=== PATIENT | female | born 1940 | race Caucasian/White ===

== ENCOUNTER 2017-01-21 14:56 | Observation (INO) | payer MEDICARE, OTHER ==
[2017-01-21] MEDS ORDERED: Aspirin Low Dose CHEW TAB* 81 MG PO ONE (15:49)
[2017-01-21 16:04] LABS: Hematocrit 40 % (35-47); Hemoglobin 13.9 g/dl (12.0-16.0); Mean Corpuscular HGB Conc 35 g/dl (31-36); Mean Corpuscular Hemoglobin 31 pg (27-31); Mean Corpuscular Volume 90 fL (80-97); Mean Platelet Volume 8 um3 (7.4-10.4); Red Blood Count 4.45 10^6/ul (4.0-5.4); Red Cell Distribution Width 13 % (10.5-15); White Blood Count 6.7 10^3/ul (3.5-10.8)
[2017-01-21] MEDS ORDERED: clonazePAM TAB(*) 0.5 MG PO ONE (16:12)
[2017-01-21 16:23] LABS: Albumin 4.3 g/dL (3.2-5.2); Calcium 9.6 mg/dL (8.6-10.3); EGFR African American 55.6 (>60); EGFR Non-African American 43.3 (>60); Globulin 2.6 g/dL (2-4); Potassium 3.6 mmol/L (3.5-5.0); Total Bilirubin 0.5 mg/dL (0.2-1.0); Total Protein 6.9 g/dL (6.4-8.9)
[2017-01-21 16:25] LABS: Troponin I 0.01 ng/mL (<0.04)
--- NOTE | 2017-01-21 16:32 | RAD ---
Indication: Chest pain. Single frontal view of the chest performed at 1615 hours was reviewed. Comparison is made with previous exam dated April 15, 2012. No mediastinal shift is noted. Heart is of normal size and configuration. Lung nichols appear clear. IMPRESSION: NO ACTIVE CARDIOPULMONARY DISEASE IS NOTED.
[2017-01-21] MEDS ORDERED: Acetaminophen TAB* 325 MG PO PRN (17:50)
[2017-01-21] MEDS ORDERED: Ondansetron INJ* 2 MG/ML VIAL IV PRN (17:50)
[2017-01-21] MEDS: Heparin VIAL(*) 5000 UNITS/ML VIAL (FIVE THOUSAND) SUBCUT SCH (21:11)
--- NOTE | 2017-01-22 00:50 | HP ---
HISTORY AND PHYSICAL: DATE OF ADMISSION: 01/21/17 PRIMARY CARE PROVIDER: Celia Escudero NP ATTENDING PHYSICIAN WHILE IN THE HOSPITAL: Chidi Hewitt MD*(report dictated by Lan Dupree NP) CHIEF COMPLAINT: 1. Chest pain. 2. Anxiety. 3. Suicidal ideation. HISTORY OF PRESENT ILLNESS: Ms. Weaver is a 77-year-old female patient who unfortunately 4 months ago lost her ; in addition to this, recently also lost her brother. She has been dealing with quite a fair amount of stress. She carries a history of anxiety and depression. She has not slept in 2 days and she had been having an upset stomach. She also has a history of GERD, arthritis, panic attacks, macular degeneration, and glaucoma, although currently not on any treatment. She comes in today because she today was going through her 's things in the garage and she came across a few articles that reminded her of him and she started developing chest pressure, tightness, squeezing in the left arm and chest wall down and also had an associated shortness of breath. She denied any diaphoresis and denied having any nausea. She states that she has not been feeling ill recently with the exception that she does have a little bit of a runny nose at times, but she states she has been feeling very anxious and she feels like she just does not want to continue living, and she did state to the nurses and myself that she did feel suicidal, but no plan was in place. She says that she just does not feel like continuing to live because of losing her significant other. The family was concerned for several reasons obviously, particularly the suicidal ideation and the chest discomfort, so they brought her in to the hospital to be evaluated today. She denies any chest pressure currently. She states she feels a little bit better after having been treated here in the ER, but because of the chest discomfort, the hospitalist service was asked to evaluate for admission. PAST MEDICAL HISTORY: Significant for: 1. GERD. 2. Arthritis. 3. Depression. 4. Anxiety. 5. Panic attacks. 6. Macular degeneration. 7. Glaucoma. PAST SURGICAL HISTORY: 1. She has had back surgery x3. 2. Cataract extraction. 3. Hysterectomy. 4. Cleft palate repair. HOME MEDICATIONS: According to the list she gave me include: 1. Lexapro 10 mg p.o. daily. 2. Zantac 150 mg p.o. daily. ALLERGIES TO MEDICATIONS: Include MAOI ANTIDEPRESSANTS. FAMILY HISTORY: Both her parents did have a history of heart disease and MIs. SOCIAL HISTORY: She does not smoke. Does not drink. She lives alone. Surrogate decision maker is her son. REVIEW OF SYSTEMS: There is no documented fever. She denied having any significant weight change. There was no double vision. She denies having any ear discharge. There is no rhinorrhea. There is no sore throat. No thyroid enlargement. She admitted to having chest pressure per my HPI. She denies having any abdominal pain. There was no nausea. No vomiting. No dysuria. No frequency. No seizure. No loss of consciousness. No pruritus. No skin ulcerations. Review of 14 systems completed, all others negative. PHYSICAL EXAMINATION GENERAL: At this time, Ms. Dunn is a 77-year-old female patient. She is sitting in the ER stretcher. Does not appear to be in any acute distress. VITAL SIGNS: Reveal blood pressure 163/68 with a pulse of 71, respirations 16, O2 sat 98%, and temperature 97.8. HEENT: Head atraumatic. Eyes: Sclerae are anicteric. NECK: Supple. Throat: Oral mucosa appears to be moist. No oropharyngeal erythema. LUNGS: Clear to auscultation bilaterally. No wheezes, rales, or rhonchi. HEART: Sounds S1, S2. Regular rate and rhythm. No murmurs, rubs, or gallops. ABDOMEN: Soft, flat, nontender. Bowel sounds present. EXTREMITIES: Pulses were 2+ throughout. She is able to move all 4 extremities with 5/5 strength. NEUROLOGIC: She is awake, she is alert, and she is oriented x3. No gross focal deficits. SKIN: Grossly intact. DIAGNOSTIC STUDIES/LAB DATA: Today revealed a WBC of 6.7, RBC of 4.45, hemoglobin 13.9, hematocrit of 40, and platelet count of 288. Sodium 138, potassium 3.6, chloride of 104, bicarb 24, BUN 17, creatinine 1.21 which is right near her baseline, glucose 87, lactic 1.5, and calcium 9.6. Total bili 0.5, AST 18, ALT 20, and alk phos 67. Troponin 0.01. Albumin of 4.3. She had a chest x-ray obtained today, which revealed no active cardiopulmonary disease. There was an EKG obtained today as well, normal sinus rhythm with a rate of 67, no ST elevations or T-wave inversions. Reviewed with the previous EKG, appears to be similar. Old medical records were reviewed. ASSESSMENT AND PLAN: Ms. Dunn is a 77-year-old female patient coming in to the ER today with complaints of chest discomfort. Hospitalist service was asked to evaluate for admission. She will be admitted under observation status for: 1. Chest pain: Again, I suspect this is probably related to panic attack; however, she does have a family history. I think at this point, it is warranted to go ahead and cycle her troponins, and the story is concerning because it was a pressure, she had some associated shortness of breath and it went into her arms a little bit. I think a stress test is warranted, so I will order a chemical stress test. She is unable to walk on a treadmill because of the recent history of back surgeries. Place her on telemetry, cycle her troponins, get a lipid panel and A1c in the morning. 2. Suicidal ideation: I did place a consult to Psychiatry to evaluate the patient tomorrow when she is medically stable and I have put her on an one-to- one suicidal watch. 3. Depression/anxiety: Continue with her Lexapro. She did state that she was taking clonazepam at one point 3 times a day as needed, so I have ordered her a small dose of this, but she says she has not taken it in several months. 4. Gastroesophageal reflux disease: Continue supportive care. 5. Arthritis: P.r.n. Tylenol as available. 6. History of panic attacks: Supportive care and continue her SSRI and continue the p.r.n. clonazepam. 7. History of macular degeneration and glaucoma: She can follow up with her primary. 8. DVT prophylaxis: Put her on heparin subcu. She is high risk. 9. Code status: Full code. 10. Fluids, electrolytes, and nutrition: She can have a heart healthy diet. She is n.p.o. after midnight. TIME SPENT: Time spent on the admission was 60 minutes; greater than half the time was spent [id number] with the patient obtaining my history and physical, the other half time was spent going over the plan of care with the patient and implementing plan of care. I discussed the plan of care with my attending, Dr. Hewitt. He is in agreement. LAN DUPREE NP CC: Celia Escudero NP* [id number]/[facility] #: [id number] [facility] SYSTEMChristiano
[2017-01-22] MEDS: clonazePAM TAB(*) 0.5 MG PO PRN ×3 (01:01→21:00)
[2017-01-22] MEDS: Heparin VIAL(*) 5000 UNITS/ML VIAL (FIVE THOUSAND) SUBCUT SCH ×2 (05:09→13:31)
[2017-01-22 07:38] LABS: Hematocrit 40 % (35-47); Hemoglobin 14.1 g/dl (12.0-16.0); Mean Corpuscular HGB Conc 35 g/dl (31-36); Mean Corpuscular Hemoglobin 32 pg (27-31); Mean Corpuscular Volume 91 fL (80-97); Mean Platelet Volume 8 um3 (7.4-10.4); Red Blood Count 4.44 10^6/ul (4.0-5.4); Red Cell Distribution Width 13 % (10.5-15); White Blood Count 5.7 10^3/ul (3.5-10.8)
[2017-01-22 07:56] LABS: BUN/Creatinine Ratio 16.8 (8-20); Calcium 9.3 mg/dL (8.6-10.3); EGFR African American 56.7 (>60); EGFR Non-African American 44.1 (>60); Potassium 3.9 mmol/L (3.5-5.0)
[2017-01-22] MEDS ORDERED: Regadenoson* 0.4 MG/5 ML SYRINGE ONE (08:20)
[2017-01-22] MEDS ORDERED: Citalopram TAB* 20 MG PO SCH (09:00)
[2017-01-22] MEDS ORDERED: Aspirin EC Low Dose* 81 MG TAB.EC PO SCH (09:00)
[2017-01-22] MEDS ORDERED: Famotidine TAB* 20 MG PO SCH (09:00)
--- NOTE | 2017-01-22 10:57 | RAD ---
HISTORY: Chest pain COMPARISONS: April 16, 2012 TECHNIQUE: A 1 day stress/rest myocardial perfusion study was performed, with pharmacologic stress. The stress portion was monitored by Dr. Haile. Gated SPECT imaging was performed, with CT-based attenuation correction DOSE: Stress: Technetium 99m tetrofosmin, 25.7 millicuries, injected at 9:03 AM on January 22, 2017 Rest: Technetium 99m tetrofosmin, 10.6 millicuries, injected at 6:37 AM January 22, 2017 Pharmacologic agent: Lexiscan FINDINGS: CARDIAC MONITORING: No EKG changes of ischemia with stress EF: 76 % TID: 1.09 MOTION: Normal motion, with normal wall thickening. PERFUSION: There are no fixed or reversible perfusion defects. OTHER: None IMPRESSION: NO FIXED OR REVERSIBLE PERFUSION DEFECTS ASSESSMENT: LOW RISK. Based on imaging criteria from ACC/AHA 2002. Guideline Update for the Management of Patient's with Chronic Stable Angina, table 23. Noninvasive Risk Stratification.
--- NOTE | 2017-01-22 16:25 | PN ---
Subjective Date of Service: 01/22/17 Interval History: Patient seen and examined at bedside. Pt states that she continues to have chest discomfort that is left of her sternum, she reports that it is better than it has been. This pain is reproducible with palpation. Denies fever, chills , shortness of breath, N/V/D. Pt also report having spinal stenosis and frequent headaches, that she feels is related to her spinal stenosis. Pt also states that she has a lot of anxiety and is having a hard time coping with the passing of her . Tele: Sinus rhythm, rate 60-70's. Family History: Unchanged from Admission Social History: Unchanged from Admission Past Medical History: Unchanged from Admission Objective Active Medications: Acetaminophen (Tylenol Tab*) 650 mg PO Q4H PRN Reason: FEVER/PAIN Aspirin (Aspirin Ec Low Dose*) 81 mg PO DAILY [facility] Citalopram Hydrobromide (Celexa Tab*) 20 mg PO DAILY [facility] Clonazepam (Klonopin Tab(*)) 0.5 mg PO TID PRN Reason: ANXIETY Famotidine (Pepcid Tab*) 20 mg PO DAILY [facility] Reason: Protocol Heparin Sodium (Porcine) (Heparin Vial(*)) 5,000 units SUBCUT Q8HR PAULA Ondansetron HCl (Zofran Inj*) 4 mg IV Q6H PRN Reason: NAUSEA Vital Signs 01/21/17 01/21/17 01/21/17 18:00 19:25 23:03 Temperature 98.2 F 98.0 F Pulse Rate 65 87 64 Respiratory 20 18 18 Rate Blood Pressure 96/72 152/57 137/57 (mmHg) O2 Sat by Pulse 99 97 98 Oximetry 01/22/17 01/22/17 01/22/17 01:01 02:49 07:00 Temperature 98.0 F Pulse Rate 69 Respiratory 17 16 18 Rate Blood Pressure 137/61 (mmHg) O2 Sat by Pulse 99 Oximetry 01/22/17 01/22/17 01/22/17 07:18 11:36 13:13 Temperature 97.3 F 97.5 F Pulse Rate 63 71 Respiratory 16 16 22 Rate Blood Pressure 140/56 140/66 (mmHg) O2 Sat by Pulse 100 97 Oximetry 01/22/17 01/22/17 15:05 15:13 Temperature 97.7 F Pulse Rate 71 Respiratory 16 20 Rate Blood Pressure 129/47 (mmHg) O2 Sat by Pulse 98 Oximetry Oxygen Devices in Use Now: None Appearance: NAD, sitting up in bed Eyes: No Scleral Icterus, PERRLA Ears/Nose/Mouth/Throat: NL Teeth, Lips, Gums, Mucous Membranes Moist Respiratory: Symmetrical Chest Expansion and Respiratory Effort, Clear to Auscultation Cardiovascular: NL Sounds; No Murmurs; No JVD, RRR Abdominal: NL Sounds; No Tenderness; No Distention Extremities: No Edema Skin: No Rash or Ulcers Neurological: Alert and Oriented x 3, NL Muscle Strength and Tone Lines/Tubes/Other Access: Clean, Dry and Intact Peripheral IV - site benign Nutrition: Taking PO's Result Diagrams: 01/22/17 07:22 01/22/17 07:22 Additional Lab and Data: Assess/Plan/Problems-Billing Assessment: Ms. Dunn is a 77 yo female with PMH significant for GERD, panic attacks, macular degeneration and glaucoma who presented to the emergency room with complaints of chest pressure and tightness with associated shortness of breath and squeezing into the arm. - Patient Problems (1) Chest pain Code(s): R07.9 - CHEST PAIN, UNSPECIFIED SNOMED Code(s): 38518768 Comment: - Pt continues to report left sternal chest discomfort that has improved. The pain is reproducible with palpation. - Troponin 0.01 x, 0.00 - Cardiac Stress test - low risk - Suspect this is related to anxiety and possibly muscular (2) Suicidal ideation Code(s): R45.851 - SUICIDAL IDEATIONS SNOMED Code(s): 6675799 Comment: - Psychiatric consult pending - Continue 1:1 (3) Anxiety and depression Code(s): F41.9 - ANXIETY DISORDER, UNSPECIFIED; F32.9 - MAJOR DEPRESSIVE DISORDER, SINGLE EPISODE, UNSPECIFIED SNOMED Code(s): 348254253 Comment: - Continue Celexa and clonazepam PRN (4) GERD (gastroesophageal reflux disease) Code(s): K21.9 - GASTRO-ESOPHAGEAL REFLUX DISEASE WITHOUT ESOPHAGITIS SNOMED Code(s): 602166625 (5) Arthritis Code(s): M19.90 - UNSPECIFIED OSTEOARTHRITIS, UNSPECIFIED SITE SNOMED Code(s) : 3415344 Comment: - Tylenol PRN (6) History of panic attacks Code(s): Z86.59 - PERSONAL HISTORY OF OTHER MENTAL AND BEHAVIORAL DISORDERS SNOMED Code(s): 491171500 Comment: - Supportive Care - Continue Celexa and clonazepam PRN (7) Macular degeneration Code(s): H35.30 - UNSPECIFIED MACULAR DEGENERATION SNOMED Code(s): 078810486 Comment: - with glaucoma - Continue to follow with PCP outpatient (8) DVT prophylaxis Code(s): OPF1780 - SNOMED Code(s): 998878332 Comment: - Heparin SQ (9) Full code status Code(s): Z78.9 - OTHER SPECIFIED HEALTH STATUS SNOMED Code(s): 808549687 Status and Disposition: OBV. Discharge to home vs BSU after psychiatric consult.
[2017-01-22 20:53] VITALS: BP 143/68
[2017-01-22] MEDS ORDERED: Atorvastatin* 40 MG TAB PO SCH (21:00)
--- NOTE | 2017-01-23 08:41 | ED ---
I, Oh,Raudel, scribed for Lyndon Patrick MD on 01/21/17 at 1639 . HPI Chest Pain - HPI Summary HPI Summary: This 77 y/o female presents to ED for acute, intermittent CP since 2 hours ago. Three sons and daughter in law present at bedside. Son reports that she was going through some stuffs in shed when pt came across those that used to belong to late and father. Pt had recent loss of her family members, father, brother and . Per son, pt appeared to experience dyspnea, pallor, and LUE numbness/tingling at the time of CP onset. Son denies any episode of fall or syncope. Blood pressure of 172/82 was noted at home [employer]. Pt does admit to feeling emotional distress, increased anxiety/depression, and sleep disturbance. She also reports eating birthday cake for her grandson's birthday earlier today and "it didn't agree with me". PMHx includes known anxiety/ depression that is controlled with clonazepam, back/neck stenosis, GERD, and glaucoma. No known HTN that is currently controlled with medications. Pt admits to having been noncompliant with her clonazepam. - History of Current Complaint Chief Complaint: EDChestPainROMI Time Seen by Provider: 01/21/17 15:46 Hx Obtained From: Patient, Family/Octave Board Racker - sons and daughter in law present at bedside, Medical Records Onset/Duration: Started Hours Ago - 2 hours ago, Atraumatic, Still Present Timing: Constant Pain Intensity: 3 Pain Scale Used: 0-10 Numeric Chest Pain Location: Diffuse Chest Pain Radiates: Yes Chest Pain Radiates To:: Arm - LUE Character: Dull/Aching Aggravating Factor(s): Nothing Alleviating Factor(s): Nothing Associated Signs and Symptoms: Positive: Chest Pain, Anxiety, Numbness - LUE, Tingling - LUE, Shortness of Breath - dyspnea. Negative: Fever - Allergy/Home Medications Allergies/Adverse Reactions: Allergies Allergy/AdvReac Type Severity Reaction Status Date / Time MILK Allergy Severe SEVERE Uncoded 11/04/14 10:17 STOMACH PAINS ARTIFICAL SWEETNERS Allergy CRAMPS Uncoded 11/04/14 10:17 DEPRESSION MEDICATION Allergy Unknown Uncoded 11/04/14 10:17 Reaction Details Home Medications: Home Medications Escitalopram (NF) [Lexapro (NF)] 10 mg PO DAILY 01/21/17 [History Confirmed ] Ranitidine TAB (NF) [Zantac TAB (NF)] 150 mg PO DAILY 01/21/17 [History Confirmed 01/21/17] PMH/Surg Hx/FS Hx/Imm Hx GI History: Reports: Hx Gastroesophageal Reflux Disease, Hx Irritable Bowel - OCCASIONAL Musculoskeletal History: Reports: Hx Arthritis - ALL OVER Sensory History: Reports: Hx Cataracts - RIGHT, Hx Contacts or Glasses - GLASSES , Hx Glaucoma - POSSIBLE BILATERAL, Hx Hearing Aid - LEFT Opthamlomology History: Reports: Hx Cataracts - RIGHT, Hx Contacts or Glasses - GLASSES, Hx Glaucoma - POSSIBLE BILATERAL Psychiatric History: Reports: Hx Anxiety - ON MED, Hx Depression - Surgical History Surgery Procedure, Year, and Place: BACK SURGERY X 3, [facility] X1; [facility] X2. HYSTERECTOMY, [facility] Hx Anesthesia Reactions: No Infectious Disease History: No Infectious Disease History: Denies: Traveled Outside the [place] in Last 30 Days - Family History Known Family History: Positive: Cardiac Disease, Other - Mother -- colon CA - Social History Alcohol Use: None Hx Substance Use: No Substance Use Type: Reports: None Hx Tobacco Use: No Smoking Status (MU): Never Smoked Tobacco Review of Systems Positive: Other - pallor. Negative: Fever, Chills Negative: Erythema Negative: Sore Throat Positive: Chest Pain Positive: Shortness Of Breath Positive: Abdominal Pain - abd discomfort after eating birthday cake. Negative : Vomiting, Nausea Negative: dysuria, hematuria Negative: Arthralgia, Myalgia Negative: Rash Positive: Weakness - general weakness, Paresthesia - LUE tingling, Numbness. Negative: Syncope Positive: Anxious, Depressed, Other - Positive sleep disturbance All Other Systems Reviewed And Are Negative: Yes Physical Exam Triage Information Reviewed: Yes Vital Signs On Initial Exam: Initial Vitals Temp Pulse Resp BP Pulse Ox 99.3 F 80 20 173/59 99 01/21/17 15:03 01/21/17 15:03 01/21/17 15:03 01/21/17 15:03 01/21/17 15:03 Vital Signs Reviewed: Yes Diagnostics - Vital Signs Vital Signs Temp Pulse Resp BP Pulse Ox 01/21/17 15:11 97.8 F 66 20 173/59 100 01/21/17 15:03 99.3 F 80 20 173/59 99 - Laboratory Lab Results: Lab Results 01/21/17 Range/Units 15:50 WBC 6.7 (3.5-10.8) 10^3/ul RBC 4.45 (4.0-5.4) 10^6/ul Hgb 13.9 (12.0-16.0) g/dl Hct 40 (35-47) % MCV 90 (80-97) fL MCH 31 (27-31) pg MCHC 35 (31-36) g/dl RDW 13 (10.5-15) % Plt Count 288 (150-450) 10^3/ul MPV 8 (7.4-10.4) um3 Neut % (Auto) 53.4 (38-83) % Lymph % (Auto) 34.6 (25-47) % Mclennan % (Auto) 9.7 H (1-9) % Eos % (Auto) 1.9 (0-6) % Baso % (Auto) 0.4 (0-2) % Absolute Neuts (auto) 3.6 (1.5-7.7) 10^3/ul Absolute Lymphs (auto) 2.3 (1.0-4.8) 10^3/ul Absolute Monos (auto) 0.6 (0-0.8) 10^3/ul Absolute Eos (auto) 0.1 (0-0.6) 10^3/ul Absolute Basos (auto) 0 (0-0.2) 10^3/ul Absolute Nucleated RBC 0 10^3/ul Nucleated RBC % 0 Result Diagrams: 01/22/17 07:22 01/22/17 07:22 Lab Statement: Any lab studies that have been ordered have been reviewed, and results considered in the medical decision making process. - Radiology CXR Xray Interpretation: No Acute Changes Radiology Interpretation Completed By: Radiologist - EKG 1518 Cardiac Rate: NL - 67 bpm EKG Rhythm: Sinus Rhythm ST Segment: Normal Ectopy: None Chest Pain Course/Dx - Course Assessment/Plan: This 77 y/o female presents to ED alongside her sons and daughter in law for intermittent CP since 2 hours ago. Son present at bedside reports "heavy breathing", pallor, and LUE numbness/tingling. PMHx does include known anxiety/depression and GERD. Negative fall or syncope. CXR and EKG were wnl. Bloodwork was wnl except elevated creatinine of 1.21. Plan of care involving admission for further cardiology workup to r/o any cardio etiology and MHE is shared with pt and family members. - Diagnoses Provider Diagnoses: Chest pain - Provider Notifications Discussed Care Of Patient With: Dr. Hewitt (Hospitalist) at 1603 PM Instructed by Provider To: Admit As Inpatient Discharge - Discharge Plan Condition: Stable Disposition: ADMITTED TO [facility] documentation as recorded by the Juan childress Soohyun accurately reflects the service I personally performed and the decisions made by , Lyndon Patrick MD.
--- NOTE | 2017-01-23 17:12 | DS ---
DISCHARGE SUMMARY: DATE OF ADMISSION: 01/21/17 DATE OF DISCHARGE: 01/22/17 ATTENDING PHYSICIAN: Dr. Chidi Hewitt *(dictated by Ashley Pelaez NP). PRIMARY CARE PROVIDER: Dr. Roro Horner. PRIMARY DIAGNOSES: 1. Hyperlipidemia. 2. Noncardiac chest pain. 3. Anxiety and depression with suicidal ideation. SECONDARY DIAGNOSES: 1. Arthritis. 2. Gastroesophageal reflux disease. 3. History of panic attacks. 4. Glaucoma. 5. Macular degeneration. CONSULTATIONS WHILE IN THE HOSPITAL: Status post mental health evaluation with nursing staff. STUDIES WHILE IN THE HOSPITAL: 1. Chest x-ray on 01/21/17. Radiologist's impression: No active cardiopulmonary disease is noted. 2. Nuclear medicine cardiac stress test on 01/22/17. Radiologist's impression : No fixed or reversible perfusion defects. Low risk. Accounts Officer's observation: The patient admitted with chest pain, baseline EKG. Normal sinus rhythm. Lexiscan 0.4 mg was infused over 10 seconds. Chest pain, none; arrhythmias, none; ST changes, none, with administration of regadenoson. There were no significant EKG changes. Conclusion: No evidence of myocardial ischemia by EKG criteria with regadenoson. Nuclear portion to be reported separately by Radiology. DISCHARGE MEDICATIONS: New home medications: 1. Atorvastatin 40 mg oral daily. 2. Clonazepam 0.5 mg oral 3 times daily as needed for anxiety. Continued home medications: 1. Lexapro 10 mg oral daily. 2. Ranitidine 150 mg oral daily. HISTORY OF PRESENT ILLNESS/HOSPITAL COURSE: Ms. Dunn is a 77-year-old female with past medical history significant for panic attacks, depression, and anxiety , whose passed approximately 4 months ago. She also recently lost her brother. The patient has been dealing with a fair amount of stress. She reported not sleeping for 2 days and having an upset stomach. The patient reports that while going through her 's things in the garage, she came across a few items that reminded her of him and started developing chest pressure, tightness, and squeezing in left arm and chest wall down with associated shortness of breath. She denied any diaphoresis or nausea. She reports no recent cold symptoms with the exception of feeling a bit of a runny nose at times and feeling anxious and not wanting to continue living. She reports feeling suicidal, but has no plan in place. Due to the patient's suicidal ideation and chest discomfort, her family brought her to the hospital for further evaluation. While in the emergency room, the patient was chest pain free. The patient received a dose of clonazepam and aspirin in the emergency room. Due to the patient's history and presentation with chest pain, the hospitalists were asked to evaluate the patient for admission. While in the hospital, the patient reported intermittent chest discomfort that was reproducible with palpation at the left sternum. The patient denied any other symptoms such as shortness of breath or pain in her arms, jaw, or diaphoresis. The patient underwent a nuclear cardiac stress test showing a low risk and no signs of myocardial ischemia. The patient had labs showing a hemoglobin A1c of 5.2. The patient's creatinine was elevated at 1.19 on the day of discharge, but this appears to be her baseline. The patient's troponins were 0.01, 0.01, and 0.00. The patient had fasting lipids drawn with a cholesterol of 231, triglycerides of 183, LDL 150, and HDL of 44. The patient was seen for a behavioral service evaluation and was offered a voluntary admission to the Behavioral Services Unit for her anxiety and depression. The patient declined at this time and her children are comfortable with her going home with them. Ms. Dunn is stable for discharge to home today. Vital signs are as follows: Temperature 97.7, heart rate 71, respiratory rate 16, O2 sat 98% on room air, blood pressure 129/47. DISCHARGE PLAN: Ms. Dunn will be discharged to home. ACTIVITY: As tolerated. DIET: She should be on a heart-healthy diet. As far as her hyperlipidemia, she has been started on atorvastatin 40 mg oral daily. For the patient's anxiety, she has been given clonazepam 0.5 mg to use 3 times daily as needed for anxiety. I did check her I-STOP with reference number [id number]. Also, dispensed the patient 2 tablets of clonazepam to go home with until she is able to get to her pharmacy in the morning to fill her prescriptions. The patient has been asked to return to the emergency room for changes in her chest discomfort such as worsening or shortness of breath or thoughts of harming herself. The patient's three sons were also at bedside and the plan of care was discussed with them. The patient has been instructed to call Dr. Horner's office to make an appointment for the next week. The patient should also be seen by [facility]. She has been asked to call to make an appointment to get established as a patient for outpatient psychiatric care. This is a summarized report of a complex medical history and hospital stay. For further details, please see the entire medical record. TIME SPENT: Time for this discharge was 50 minutes, 25 minutes was spent face- to- face with the patient and 3 sons discussing discharge plans and instructions. CONDITION ON DISCHARGE: Stable. ASHLEY PELAEZ NP CC: Dr. Roro Horner* [id number]/CPS #: [id number] KRYSTEN
== END 2017-01-22 21:35 | disposition home or self-care (01) ==
LOC: ED 14:56 → MEDTELE 17:46
PROVIDERS: ADMIT Hospitalist; ATTEND Hospitalist
DX: R07.89 Other chest pain (principal); E78.5 Hyperlipidemia, unspecified; F32.9 Major depressive disorder, single episode, unspecified; R45.851 Suicidal ideations; F41.9 Anxiety disorder, unspecified; K21.9 Gastro-esophageal reflux disease without esophagitis; H35.30 Unspecified macular degeneration; M19.90 Unspecified osteoarthritis, unspecified site; Z79.899 Other long term (current) drug therapy; Z88.8 Allergy status to other drugs, medicaments and biological substances; R06.02 Shortness of breath
CPT/HCPCS: 36415; 71010; 78452; 80048; 80053; 80061; 83036; 83605; 84484; 85025; 93005; 93017; 96372; 99284; A9270-GY; A9502; G0378; J1644; J2785

== ENCOUNTER 2019-10-20 04:38 | Emergency (ER) | payer MEDICARE, OTHER ==
--- NOTE | 2019-10-20 05:18 | ED ---
Complex/Multi-Sys Presentation - HPI Summary HPI Summary: The patient is a 79 y/o female presenting to [facility] with a chief complaint of insomnia and nasal pain with difficulty breathing for the last week. She reports that she had gone to her PCPs office on 09/08/2019, and she was prescribed Tylenol PM and Melatonin at night for insomnia. She states that she had been sleeping well until last week when a pack of heavy pillows fell out of a cabinet and hit her in the nose. She has since been experiencing pain and difficulty breathing through the nose. For the last two nights, she has had insomnia as she has not been taking the medications she was prescribed because she does not like them. However, she attributes the insomnia to the nasal issues. She notes that she has recently lost some weight secondary to a vegetarian diet she had been placed on. PMHx: angina, spinal stenosis, GERD, glaucoma, hearing aid, depression, anxiety. Nonsmoker, no EtOH, no substance use. Medications reviewed. Allergies noted. - History Of Current Complaint Chief Complaint: EDGeneral Time Seen by Provider: 10/20/19 04:58 Hx Obtained From: Patient Onset/Duration: Lasting Days, Still Present Timing: Constant Severity Currently: Moderate Severity Initially: Mild Aggravating Factor(s): sleeping medication non-compliance, nasal pain Alleviating Factor(s): nothing Associated Signs And Symptoms: Positive: Other - nasal pain, difficulty breathing through nose, insomnia - Allergies/Home Medications Allergies/Adverse Reactions: Allergies Allergy/AdvReac Type Severity Reaction Status Date / Time lactose Allergy Mild Abdominal Verified 10/20/19 05:40 Pain artificial sweeteners AdvReac Mild See Comment Uncoded 10/20/19 05:40 Home Medications: Home Medications busPIRone TAB* [Buspar TAB *] 15 mg PO TID 10/20/19 [History Confirmed 10/20/19] clonazePAM TAB(*) [Klonopin TAB(*)] 0.5 mg PO QID PRN 10/20/19 [History Confirmed 10/20/19] PMH/Surg Hx/FS Hx/Imm Hx Endocrine/Hematology History: Denies: Hx Diabetes Cardiovascular History: Reports: Hx Angina Denies: Hx Coronary Artery Disease, Hx Hypercholesterolemia, Hx Hypertension , Hx Myocardial Infarction, Hx Valvular Heart Disease Respiratory History: Denies: Hx Asthma, Hx Chronic Obstructive Pulmonary Disease (COPD) GI History: Reports: Hx Gastroesophageal Reflux Disease, Hx Irritable Bowel - OCCASIONAL Musculoskeletal History: Reports: Hx Arthritis - ALL OVER Sensory History: Reports: Hx Cataracts - RIGHT, Hx Contacts or Glasses, Hx Glaucoma, Hx Macular Degeneration, Hx Hearing Aid Opthamlomology History: Reports: Hx Cataracts - RIGHT, Hx Contacts or Glasses, Hx Glaucoma, Hx Macular Degeneration Psychiatric History: Reports: Hx Anxiety - ON MED, Hx Depression Denies: Hx of Violent Episodes Against Others - Cancer History Hx Chemotherapy: No Hx Radiation Therapy: No - Surgical History Surgery Procedure, Year, and Place: BACK SURGERY X 3, [facility] X1; [facility]. HYSTERECTOMY, [facility] Hx Anesthesia Reactions: No Infectious Disease History: No Infectious Disease History: Denies: Hx of Known/Suspected MRSA, Traveled Outside the [place] in Last 30 Days - Family History Known Family History: Positive: Cardiac Disease, Other - Mother -- colon CA - Social History Alcohol Use: None Hx Substance Use: No Substance Use Type: Reports: None Hx Tobacco Use: No Smoking Status (MU): Never Smoked Tobacco - Additional Comments History Additional Comments: anxiety, depression Review of Systems - ROS Summary Review of Systems Summary: Home Medications Medication Instructions Recorded Confirmed Type Atorvastatin* [Lipitor 40 MG*] 40 mg PO 2100 #30 tab 01/22/17 03/07/19 Rx clonazePAM TAB(*) [Klonopin TAB(*)] 0.5 mg PO TID PRN #10 tab [facility]D 3 01/22/1704/18 Rx Acetaminophen/Diphenhydramine 2 each PO BEDTIME PRN 03/07/19 03/07/19 History [Tylenol Pm Ex-Strength Caplet] Citalopram Hydrobromide [Celexa] 40 mg PO DAILY 03/07/19 03/07/19 History Escitalopram Oxalate [Lexapro] 20 mg PO DAILY 03/07/19 03/07/19 History Lansoprazole 15 mg PO DAILY 03/07/19 03/07/19 History Vit C/E/Zn/Coppr/Lutein/Zeaxan 2 each PO DAILY 03/07/19 03/07/19 History [Preservision Areds 2 Softgel] busPIRone TAB* [Buspar *] 15 mg PO TID 03/07/19 03/14/19 History BuPROPion XL* [Bupropion XL*] 300 mg PO DAILY 03/14/19 03/14/19 History Docusate CAP* [Colace Cap*] 100 mg PO DAILY 03/14/19 03/14/19 History Multivitamin [Multiple Vitamins] 1 each PO DAILY 03/14/19 03/14/19 History Polyethylene Glycol 3350* 17 gm PO DAILY 03/14/19 03/14/19 History [Miralax*] Simethicone [Gas-X Extra Strength] 125 mg PO DAILY 03/14/19 03/14/19 History Positive: Other - nasal pain Positive: Other - difficuly breathing through nose Neurological: Other - insomnia All Other Systems Reviewed And Are Negative: Yes Physical Exam - Summary Physical Exam Summary: General: Well-developed, Well-nourished female. No acute distress. HEENT: Normocephalic, Atraumatic. Eyes: Conjuctiva normal, PERRL. Oropharynx: Clear, mucous membranes moist, (-) exudates. Nose: Nares normal appearing. Neck: Soft, FROM, (-) lymphadenopathy, (-) thyromegaly, (-) JVD. Cardiovascular: Normal sinus rhythm, (-) murmur. Lungs: Clear to auscultation bilaterally (-) wheezes, (-) rales, (-) rhonchi. Abdomen: Soft, non-tender, non-distended, (-) organomegaly, normal bowel sounds. Back: (-) CVA tenderness Extremities: No edema. Skin: Warm, dry, (-) rash. Neuro: Alert and oriented x3, no focal deficits. Psychiatric: Significantly anxious appearing, repetitive lip-smacking movements , affect normal. Triage Information Reviewed: Yes Vital Signs On Initial Exam: Initial Vitals Temp Pulse Resp BP Pulse Ox 97.7 F 75 16 191/92 100 10/20/19 04:39 10/20/19 04:39 10/20/19 04:39 10/20/19 04:39 10/20/19 04:39 Vital Signs Reviewed: Yes Procedures - Sedation Patient Received Moderate/Deep Sedation with Procedure: No Diagnostics - Vital Signs Vital Signs Temp Pulse Resp BP Pulse Ox 10/20/19 04:39 97.7 F 75 16 191/92 100 - Laboratory Lab Statement: Any lab studies that have been ordered have been reviewed, and results considered in the medical decision making process. Re-Evaluation - Re-Evaluation First Eval Re-Evaluation Time: 06:00 Comment: I have discussed results with the patient. Discussed symptoms that warrant immediate return to ED. Complex Multi-Symp Course/Dx Course Of Treatment: 79-year-old female presents from home for insomnia. Patient states she just cannot sleep. She blames discomfort in her nose. States about a week ago she had a bag full of heavy pillows dropped from a closet onto her nose. Since that time she has had discomfort in the area. Has taken Tylenol without relief. She does note a history of having trouble sleeping. Was previously on Tylenol PM. When she saw her Dr. last time she was advised to take melatonin. Patient states she tried taking them together but she was so groggy and wouldn't make her body work like she wanted to the next morning. So for the last 2 days she has taken nothing to help her sleep. And she states she has not slept at all. Patient is very anxious appearing. Physical exam within normal limits. Chart is reviewed. Since patient is reluctant to take either Tylenol PM or melatonin at this time she is advised to try hydroxyzine. 1 tablet given to patient upon discharge to take when she gets home. Advised her to call and schedule follow-up with her PCP today. follow up sooner for any worsening symptoms. Patient is administered Hydroxyzine in the ED. - Diagnoses Provider Diagnoses: Insomnia, Nose pain Discharge ED - Sign-Out/Discharge Documenting (check all that apply): Patient Departure - Patient will be discharged home. - Discharge Plan Condition: Stable Disposition: HOME Patient Education Materials: Insomnia (ED) Referrals: Mirlande Kerr MD [Primary Care Provider] - 3 Days Additional Instructions: Apply ice to your nose for pain. Please follow up with your primary care physician within three days. Please return to ED for any new or worsening symptoms. - Billing Disposition and Condition Condition: STABLE Disposition: Home - Attestation Statements Document Initiated by Scribe: Yes Documenting Scribe: Hiwot Canas Provider For Whom Vondae is Documenting (Include Credential): Dr. Angelica Michael MD Scribe Attestation: Hiwot Acosta, scribed for Dr. Angelica Michael MD on 10/20/19 at 0613. Scribe Documentation Reviewed: Yes Provider Attestation: The documentation as recorded by the garciaibe, Hiwot Canas accurately reflects the service I personally performed and the decisions made by me, Dr. Angelica Michael MD Status of David Document: Viewed
[2019-10-20] MEDS ORDERED: hydrOXYzine HCL TAB* 50 MG PO ONE (05:56)
[2019-10-20 06:15] VITALS: BP 157/70
== END 2019-10-20 06:14 | disposition home or self-care (01) ==
LOC: ED 04:38
DX: G47.00 Insomnia, unspecified (principal); J34.89 Other specified disorders of nose and nasal sinuses; K21.9 Gastro-esophageal reflux disease without esophagitis; F41.9 Anxiety disorder, unspecified; Z91.011 Allergy to milk products; Z91.018 Allergy to other foods
CPT/HCPCS: 99282; A9270-GY